=== PATIENT | female | born 1995 | race Caucasian/White ===

== ENCOUNTER 2023-10-23 12:53 | Emergency (ER) | payer OTHER, SELFPAY ==
[2023-10-23 12:57] VITALS: BP 124/89
--- NOTE | 2023-10-23 14:19 | ED.GENMED ---
History of Present Illness
General
Chief Complaint: Abnormal Lab Value
Time Seen by Provider: 10/23/23 13:15
History of Present Illness
History of Present Illness:
28-year-old female with history of anxiety presenting from correctional facility for abnormal vital signs and medical clearance. Patient notes that she violated parole, was taken into custody. When they were doing their intake, her oxygen was low
and her heart rate was high. She does note preceding this she was having a panic attack regarding the preceding events. She notes that she is presently feeling anxious. Denies any chest pain, difficulty breathing, abdominal pain. Denies any
fever or recent illness. She usually takes Klonopin for anxiety which she was not given today. Denies any weakness or lightheadedness or additional acute medical complaints
Past History
Past History
ED Past Medical History: Psychiatric (anxiety, depression, opiate abuse maintained on Suboxone, ADHD) and Other (IBS, rhabdomyolysis thought to be related to Zithromax.)
Social History
Tobacco: Smoker
Alcohol: Occasional
Drug: Marijuana and Narcotics
Personal: Single
Living: with family
Employment: Student
Family History
Family History: Other (Noncontributory)
Phy Exam
Physical Exam
Physical Exam:
General: Well-appearing, no clinical signs of dehydration, nontoxic and in no acute distress
HEENT: protecting airway
Neck: appears supple
CV: Normal heart rate, regular rhythm, no evidence of cyanosis
Resp: No accessory muscle use, no increased work of breathing, lungs clear to auscultation bilaterally
Abd: Soft and non-distended, no tenderness to palpation, normal bowel sounds
Extremities: No deformities, no swelling, no erythema, pulses and sensation intact
Neuro: alert, no focal neurologic deficit
: deferred
Rectal: deferred
Psych: Normal affect
Skin: Intact
Course
Orders/Labs/Results
Orders:
Orders
10/23/23 14:03
Clonazepam [Klonopin] 0.25 mg PO NOW STA
Vital Signs
Initial and Last Documented VS:
Initial Vital Signs
Temp Pulse Resp BP Pulse Ox
97.9 F 95 16 124/89 100
10/23/23 12:57 10/23/23 12:57 10/23/23 12:57 10/23/23 12:57 10/23/23 12:57
Last Documented Vital Signs
Temp Pulse Resp BP Pulse Ox
97.9 F 82 18 124/89 99
10/23/23 12:57 10/23/23 13:47 10/23/23 13:47 10/23/23 12:57 10/23/23 13:47
MDM/Problems Addressed
MDM/Problems Addressed:
28-year-old female with history of anxiety presenting to the emergency department for medical clearance from correctional facility with concern of preceding tachycardia and hypoxia. Vital signs on arrival however are normal.
On exam, patient is resting comfortably, no acute distress, no respiratory distress. Patient's oxygen level is normal. Lungs are clear to auscultation. No present concern for hypoxia. Additionally, heart rate is within normal limits, no present
tachycardia. For this reason no concern for PE or any active pathology. Patient notes that they took her vital signs after she had a panic attack, likely source of abnormal vital signs. Patient reports that she is feeling anxious. Will
administer her Klonopin. Otherwise do not feel that she requires any advanced workup. Feel stable for discharge, medically clear. Return precautions discussed and patient verbalized understanding
*Critical Care Note
Total Time (30-74mins, 75-104mins- exclusive of procedures): Not Applicable
ED Attending Note
-
Portions of this chart may have been created with voice recognition software.� Occasional wrong word or��sound alike� substitutions may have occurred due to the inherent limitations of voice recognition software.
Discharge Plan
Departure
Prescriptions:
No Action
ondansetron 4 mg tablet,disintegrating
4 mg PO Q8H PRN (Reason: nausea and vomiting) Qty: 10 0RF
Referrals:
[facility] [Family Provider] -
Interventions
Interventions:
*Risk Screen - Suicide Last Done: 10/23/23 13:50
*General Assessment Last Done: 10/23/23 13:50
*Neglect/Abuse Screening Last Done: 10/23/23 13:50
*ED COVID-19 Vaccine History Last Done: 10/23/23 13:50
Discharge Date and Time
Print Language: GREENLANDIC
[2023-10-23] MEDS: KLONOPIN 0.25 MG PO (14:48)
[2023-10-23 14:51] VITALS: BP 121/71
== END 2023-10-23 14:54 | disposition home or self-care (01) ==
LOC: EMR 12:53
PROVIDERS: EMERGENCY PHYSICIAN Student in an Organized Health Care Education/Training Program
DX: F41.8 Other specified anxiety disorders (principal); F90.9 Attention-deficit hyperactivity disorder, unspecified type; K58.9 Irritable bowel syndrome, unspecified; M62.82 Rhabdomyolysis; F17.200 Nicotine dependence, unspecified, uncomplicated
CPT/HCPCS: 99282

== ENCOUNTER 2023-10-30 14:32 | Emergency (ER) | payer OTHER, SELFPAY ==
[2023-10-30 14:38] VITALS: BP 103/66
--- NOTE | 2023-10-30 16:45 | ED.GENMED ---
History of Present Illness
General
Chief Complaint: Foreign Body Removal
Source: patient
Exam Limitations: none
Time Seen by Provider: 10/30/23 15:30
Nursing documentation reviewed up to this point in time: agreed with
History of Present Illness
History of Present Illness:
28 y/o F in custody [facility]
here with concerns for vaginal contraband which was already found and she is now here for a check
she consetns to vaginal and rectal exams and does not believe there are any additional bags of fentanyl in her body
she denies pain
she has had vaginal discharge, whitish, frothy and had BV 1 mo ago but then found out her partner was cheating on her so she is concerne dabout STI
she has no pelvic pain ,kfever chills, urinary symptoms
Past History
Past History
ED Past Medical History: Psychiatric (anxiety, depression, opiate abuse maintained on Suboxone, ADHD) and Other (IBS, rhabdomyolysis thought to be related to Zithromax.)
Social History
Tobacco: Smoker
Alcohol: Occasional
Drug: Marijuana and Narcotics
Personal: Single
Living: with family
Employment: Student
Family History
Family History: Other (Noncontributory)
Review of Systems
Review of Systems
Allergies reviewed?: Yes
All Other Systems: Not applicable
Phy Exam
Physical Exam
Physical Exam:
GENERAL: Alert , in no apparent distress
CARDIAC: Regular rate and rhythm .
LUNGS: Clear breath sounds bilaterally, no acute respiratory distress, no wheezes/rales/rhonchi
ABDOMEN: Soft, without focal tenderness, no r/g, no cvat, normal bowel sounds
: some vaginal discharge, thin, frothy
nothing found in vagina, no fb
nontender
no cervicitis
rectum: no fb
some stool
NEUROLOGICAL: Alert and oriented, no focal neuro deficits
SKIN: Warm and dry, skin intact.
PSYCH: Normal and appropriate interaction.
Course
Orders/Labs/Results
Orders:
Orders
10/30/23 14:52
CR Abdomen - 1 View Urgent
Comment:
Reason For Exam: contraband in vaginal vault
10/30/23 16:55
Trichomonas - Wet Prep Urgent
THADDEUS Source: Vagina
Specimen Description:
10/30/23 16:56
Chlamydia/GC by PCR Urgent
THADDEUS Source: Vagina
Specimen Description:
Source:: CERVIX
Vital Signs
Initial and Last Documented VS:
Initial Vital Signs
Temp Pulse Resp BP Pulse Ox
98.1 F 71 20 103/66 99
10/30/23 14:38 10/30/23 14:38 10/30/23 14:38 10/30/23 14:38 10/30/23 14:38
Last Documented Vital Signs
Temp Pulse Resp BP Pulse Ox
98.1 F 71 20 103/66 99
10/30/23 14:38 10/30/23 14:38 10/30/23 14:38 10/30/23 14:38 10/30/23 14:38
MDM/Problems Addressed
Differential Diagnosis Includes:
fb, vaginitis, sti
MDM/Problems Addressed:
28 y/o F incarcerated
had contraband in her vagina
is here for check
consents to rectum and vaginal exams
no fb found
xray indep reviewed, neg
she does have vaginitis, likely bv
will test for gc/ct trich and treat for bv
d/c to halfway
cleraed
*Critical Care Note
Total Time (30-74mins, 75-104mins- exclusive of procedures): Not Applicable
ED Attending Note
-
Portions of this chart may have been created with voice recognition software.� Occasional wrong word or��sound alike� substitutions may have occurred due to the inherent limitations of voice recognition software.
Discharge Plan
Departure
Patient Disposition: Home (Routine Discharge)
Date of Disposition: 10/30/23
Time of Disposition: 16:45
Patient with high blood pressure during this ER visit?: No
Condition: Fair
Covid-19: Not Applicable
Discharge Problem:
Bacterial vaginosis
Instructions: Bacterial Vaginosis ED
Prescriptions:
New
metronidazole 500 mg tablet
500 mg PO BID 7 Days Qty: 14 0RF
No Action
ondansetron 4 mg tablet,disintegrating
4 mg PO Q8H PRN (Reason: nausea and vomiting) Qty: 10 0RF
Referrals:
[facility] [Family Provider] -
Activity Restrictions/Additional Instructions:
YOU LIKELY HAVE BACTERIAL VAGINOSIS
YOU DID NOT HAVE ANY SIGN OF ANY CONTRABAND IN YOUR VAGINA OR YOUR RECTUM
YOUR XRAY DID NOT SHOW ANY FOREIGN BODIES AND YOU CONSENTED TO A RECTAL EXAM AND A PELVIC EXAM
WE ARE TREATING YOU FOR SUSPECTED BV WITH FLAGYL 500 MG TWIC EA DAY FOR 7 DAYS
IF YOU TEST POSITIVE FOR GONORRHEA OR CHLAMYDIA OR TRICHOMONAS, WE WILL CONTACT THE CORRECTIONAL FACILITY.
Interventions
Interventions:
*Risk Screen - Suicide Last Done: 10/30/23 14:38
*General Assessment Last Done: 10/30/23 14:38
*Neglect/Abuse Screening Last Done: 10/30/23 14:38
ED- Fall Risk Assessment Last Done: 10/30/23 14:43
Discharge Date and Time
Print Language: FRENCH
== END 2023-10-30 17:11 | disposition home or self-care (01) ==
LOC: EMR 14:32
PROVIDERS: EMERGENCY PHYSICIAN Emergency Medicine
DX: N76.0 Acute vaginitis (principal); B96.89 Other specified bacterial agents as the cause of diseases classified elsewhere; F41.9 Anxiety disorder, unspecified; F32.A Depression, unspecified; K58.9 Irritable bowel syndrome, unspecified; F90.9 Attention-deficit hyperactivity disorder, unspecified type; F11.11 Opioid abuse, in remission; F17.200 Nicotine dependence, unspecified, uncomplicated; Z88.1 Allergy status to other antibiotic agents; Z88.0 Allergy status to penicillin; Z88.8 Allergy status to other drugs, medicaments and biological substances
CPT/HCPCS: 99283; 74018; 87210; 87491; 87591

== ENCOUNTER 2024-11-12 05:06 | Emergency (ER) | payer OTHER, SELFPAY ==
[2024-11-12] VITALS (7 sets, daily range): BP systolic 92–102; BP diastolic 63–76; BMI 18.5
--- NOTE | 2024-11-12 05:33 | ED.GENMED ---
History of Present Illness
<Adam Sharpe MD - Last Filed: 11/12/24 05:49>
General
Chief Complaint: Change Level of Consciousness
Source: patient
Exam Limitations: none
Time Seen by Provider: 11/12/24 05:23
Nursing documentation reviewed up to this point in time: agreed with
History of Present Illness
History of Present Illness:
Patient presents to ED for evaluation after she was found to be unresponsive by bystanders, sitting on a bench. Per paramedics, police arrived at scene initially and recognized the patient, who has had previous similar episodes secondary to an
overdose. Patient was given 4 mg of Narcan intranasally by police with improvement. When paramedics arrived at the scene, patient was somnolent, but arousable to stimuli and able to verbalize. Upon arrival in ED, patient is easily arousable but
unable to provide any further information.
Past History
<Adam Sharpe MD - Last Filed: 11/12/24 05:49>
Past History
ED Past Medical History: Psychiatric (anxiety, depression, opiate abuse maintained on Suboxone, ADHD) and Other (IBS, rhabdomyolysis thought to be related to Zithromax.)
Social History
Tobacco: Smoker
Alcohol: Occasional
Drug: Marijuana and Narcotics
Personal: Single
Living: with family
Employment: Student
Family History
Family History: Other (Noncontributory)
Review of Systems
<Adam Sharpe MD - Last Filed: 11/12/24 05:49>
Review of Systems
Allergies reviewed?: Yes
Unable to obtain full review of systems at this time due to: due to acuity
All Other Systems: Not applicable
Phy Exam
<Adam Sharpe MD - Last Filed: 11/12/24 05:49>
Physical Exam
Physical Exam:
Physical Exam
General: mild distress, acutely ill. afebrile
Head: nc/at. pupils 3mm b/l and reactive
Neck: supple. no meningeal signs. normal posterior pharynx
Heart: s1/s2 regular rate and rhythm
Lungs: no acute respiratory distress. clear bilaterally
Abdomen: normal bowel sounds. not tender.
Neuro: somnolent but arousable to voice and physical stimuli. No focal neurological deficits
Skin: no rash
Extremities: no edema. no calf tenderness
Course
<Adam Sharpe MD - Last Filed: 11/12/24 05:49>
Orders/Labs/Results
Orders:
Orders
11/12/24 05:23
Alcohol Urgent
Basic Metabolic Panel Urgent
Complete Blood Count/With Diff Urgent
11/12/24 05:28
Drug Screen, Urine [Urine Drug Abuse Screen] Urgent
11/12/24 05:29
Electrocardiogram (*1) Urgent
Reason for Study: QTc Monitoring
EKG- Treatment ONCE
Abnormal Lab Results
11/12/24
05:23
Neutrophils % 40.2 L %
(42.2-75.2)
BUN 18 H mg/dl
(7-17)
Creatinine 0.5 L mg/dL
(0.6-1.0)
11/12/24 05:23
11/12/24 05:23
Vital Signs
Initial and Last Documented VS:
Initial Vital Signs
Pulse Resp
81 21
11/12/24 05:10 11/12/24 05:10
Last Documented Vital Signs
Temp Pulse Resp BP Pulse Ox
97.6 F 74 18 96/63 98
11/12/24 05:13 11/12/24 08:30 11/12/24 08:30 11/12/24 08:01 11/12/24 08:30
<Evangelista Howard DO - Last Filed: 11/12/24 10:57>
Orders/Labs/Results
Orders:
Orders
11/12/24 05:23
Alcohol Urgent
Basic Metabolic Panel Urgent
Complete Blood Count/With Diff Urgent
11/12/24 05:28
Drug Screen, Urine [Urine Drug Abuse Screen] Urgent
11/12/24 05:29
Electrocardiogram (*1) Urgent
Reason for Study: QTc Monitoring
EKG- Treatment ONCE
Abnormal Lab Results
11/12/24
05:23
Neutrophils % 40.2 L %
(42.2-75.2)
BUN 18 H mg/dl
(7-17)
Creatinine 0.5 L mg/dL
(0.6-1.0)
11/12/24 05:23
11/12/24 05:23
Vital Signs
Initial and Last Documented VS:
Initial Vital Signs
Pulse Resp
81 21
11/12/24 05:10 11/12/24 05:10
Last Documented Vital Signs
Temp Pulse Resp BP Pulse Ox
97.6 F 74 18 96/63 98
11/12/24 05:13 11/12/24 08:30 11/12/24 08:30 11/12/24 08:01 11/12/24 08:30
<Adam Sharpe MD - Last Filed: 11/12/24 05:49>
*Pulse Oximetry
SaO2: 100
Oxygen Mode of Delivery: Room air
*EKG
Interpreted by ED Provider?: Yes
EKG Intrepretation Date: 11/12/24
Heart Rate: 69
Rate: normal
Rhythm: sinus
[place]: normal axis
Interval: normal interval
<Evangelista Howard DO - Last Filed: 11/12/24 10:57>
*Pulse Oximetry
Patient hypoxic: no
*Critical Care Note
Total Time (30-74mins, 75-104mins- exclusive of procedures): Not Applicable
<Evangelista Howard DO - Last Filed: 11/12/24 10:57>
Update Note
Update Note:
10:55 AM care of patient was transitioned earlier pending reevaluation. There was concern for drug and alcohol intoxication. Patient apparently got better with Narcan. On multiple reassessments, patient sleeping comfortably. Eventually, patient
woke up and is awake and alert and ambulating. She cannot recall the events that led her here but states she feels safe at home. Patient declined any drug or alcohol counseling. Patient did not want to wait for discharge paperwork but did receive
a verbal discharge information. We discussed likely drug overdose. She denies suicide attempt or purposeful self-harm. Patient understands strict return precautions
ED Attending Note
<Adam Sharpe MD - Last Filed: 11/12/24 05:49>
-
Portions of this chart may have been created with voice recognition software.� Occasional wrong word or��sound alike� substitutions may have occurred due to the inherent limitations of voice recognition software.
Discharge Plan
Departure
Patient Disposition: Home (Routine Discharge)
Date of Disposition: 11/12/24
Time of Disposition: 10:57
Patient with high blood pressure during this ER visit?: No
Discharge Problem:
Unresponsive episode
Prescriptions:
No Action
ondansetron 4 mg tablet,disintegrating
4 mg PO Q8H PRN (Reason: nausea and vomiting) Qty: 10 0RF
metronidazole 500 mg tablet
500 mg PO BID 7 Days Qty: 14 0RF
Referrals:
UNKNOWN - PT DOES,NOT KNOW [Family Provider]
Interventions
Interventions:
*Risk Screen - Suicide Last Done: 11/12/24 05:13
*General Assessment Last Done: 11/12/24 05:13
*Neglect/Abuse Screening Last Done: 11/12/24 05:13
*ED- Fall Risk Assessment Last Done: 11/12/24 05:13
*ED COVID-19 Vaccine History Last Done: 11/12/24 05:13
ED- Cardiac Assessment Last Done: 11/12/24 05:31
ED- Neurological Assessment Last Done: 11/12/24 05:31
ED-Psychological Assessment Last Done: 11/12/24 05:31
ED- Pulmonary Assessment Last Done: 11/12/24 05:31
Discharge Date and Time
Print Language: SOUTH SUDAN[place]
--- NOTE | 2024-11-12 05:33 | EDRN ---
Patient was found on a bench in [place] unresponsive by someone walking in town. Patient found by EMS with snoring respirations. Patient was given intranasal Narcan. Patient lethargic on arrival. Arouses to touch and sound. Patient stated 'I
think meth' when asked she was using. Per police they found 2 syringes in her possession. 1 was full and 1 was empty. Police also found 'fruit salad' of pills in her possession.
[2024-11-12 05:37] LABS: Hematocrit 39.0 % (37.0-47.0); Hemoglobin 13.9 g/dL (12.0-16.0); Mean Corp Hgb Conc. 35.6 g/dL (33.0-37.0); Mean Corpuscular Volume 82.1 fL (81.0-99.0); Nucleated Red Blood Cells % 0.4 %; Platelet Count 249 10^3/uL (130-400); Red Cell Dist. Width 12.6 % (11.5-14.5)
[2024-11-12 06:07] LABS: Blood Urea Nitrogen 18 mg/dl (7-17); Calcium 9.0 mg/dl (8.4-10.2); Carbon Dioxide 23 mmol/L (22-30); Chloride 107 mmol/L (98-107); Estimated Creatinine Clearance 106 ml/min; Glucose 83 mg/dl (70-99); Sodium 140 mmol/L (135-145); eGFR > 60.00
== END 2024-11-12 11:09 | disposition home or self-care (01) ==
LOC: EMR 05:06
PROVIDERS: EMERGENCY PHYSICIAN Emergency Medicine
DX: R40.4 Transient alteration of awareness (principal); F17.200 Nicotine dependence, unspecified, uncomplicated
CPT/HCPCS: 99284; 80048; 82077; 85025; 93005

== ENCOUNTER 2025-01-04 22:09 | Emergency (ER) | payer OTHER, SELFPAY ==
[2025-01-04 22:11] VITALS: BP 111/76
[2025-01-04 22:41] LABS: Hematocrit 37.5 % (37.0-47.0); Hemoglobin 13.7 g/dL (12.0-16.0); Mean Corp Hgb Conc. 36.5 g/dL (33.0-37.0); Mean Corpuscular Volume 77.6 fL (81.0-99.0); Nucleated Red Blood Cells % 0 %; Platelet Count 295 10^3/uL (130-400); Red Cell Dist. Width 12.5 % (11.5-14.5)
[2025-01-04 22:53] LABS: HCG, Serum Qualitative Screen Negative
[2025-01-04 22:54] LABS: ALT (SGPT) 28 U/L (0-35); AST (SGOT) 26 U/L (14-36); Albumin 4.5 g/dl (3.5-5.0); Alkaline Phosphatase 106 U/L (38-126); Blood Urea Nitrogen 11 mg/dl (7-17); Calcium 9.7 mg/dl (8.4-10.2); Carbon Dioxide 21 mmol/L (22-30); Chloride 101 mmol/L (98-107); Glucose 138 mg/dl (70-99); Potassium 4.1 mmol/L (3.5-5.1); Sodium 134 mmol/L (135-145); Total Protein 8.1 g/dl (6.3-8.2); eGFR > 60.00
--- NOTE | 2025-01-04 23:23 | ED.GENMED ---
History of Present Illness
General
Chief Complaint: Flank Pain
Source: patient and family
Exam Limitations: none
Time Seen by Provider: 01/04/25 23:07
Nursing documentation reviewed up to this point in time: agreed with
History of Present Illness
History of Present Illness:
Note:
CHIEF COMPLAINT(S)
Severe lower back pain exacerbated by coughing, with associated symptoms of nausea, near-syncope, and pain radiating to the anterior abdomen.
HISTORY OF PRESENT ILLNESS
The patient is a 29-year-old female who reports experiencing moderate lower back pain following lifting a heavy box. This pain has been intermittent, and though it was manageable, she reported a progression to severe intensity. About a week and a
half ago, the patient developed a respiratory illness characterized by a congestive cough, which aggravated the back pain. During a recent appointment, the patient reached a pain level so intense that she nearly fainted, felt nauseous, and
experienced a degree of delirium. The pain now radiates to her anterior abdomen, with accompanying numbness. The patient denies fever but reports significant coughing producing mucus. Her consultation at urgent care resulted in a diagnosis of an
acute respiratory condition, though there were misunderstandings regarding x-ray requests. No imaging has currently been performed.
PAST MEDICAL AND SURGICAL HISTORY
The patient has a history of requesting physical therapy exercises for back pain, following the initial lifting incident.
ALLERGIES
The patient reports an allergy to erythromycin, which causes a significant rash.
MEDICATIONS
Currently, she takes immediate and extended-release medications, as well as ibuprofen. She had taken ibuprofen approximately three hours prior to the visit for pain management.
PHYSICAL EXAM
General: Alert, no acute distress.
Skin: Warm, dry.
Head: Normocephalic, atraumatic.
Neck: Supple, trachea midline.
Eye, Ears, Nose, Mouth, and Throat: Oral mucosa moist.
Cardiovascular: Normal peripheral perfusion, No edema.
Respiratory: Respirations are non-labored.
Gastrointestinal: Abdomen nondistended, tenderness noted on palpation of the right side.
Back: Examination reveals discomfort with movement.
Musculoskeletal: Normal range of motion, normal strength, but reported pain exacerbated by movement.
Neurological: Alert and oriented to person, place, time, and situation. No focal neurological deficits observed.
Psychiatric: Cooperative, appropriate mood & affect.
PROBLEM LIST
Acute problems: Severe lower back pain, respiratory illness, nausea, near-syncope.
PLAN
1. Administer Ketorolac (Toradol) for pain management to evaluate the patients response to non-narcotic pain relief.
2. Request a urine sample to check for hematuria or signs of infection.
3. Order a chest X-ray to evaluate respiratory symptoms.
4. Order a CT scan to assess for renal involvement, such as kidney stones or infection.
DIFFERENTIAL DIAGNOSIS
The Differential Diagnosis includes, in no particular order and is not limited to:
1. Musculoskeletal strain from lifting
2. Acute bronchitis
3. Renal colic or nephrolithiasis
4. Kidney infection (pyelonephritis)
5. Viral upper respiratory infection
6. Gastrointestinal issue, possibly related to musculoskeletal strain
7. Thoracic muscle strain from coughing
8. Intercostal neuralgia related to respiratory illness
9. Costochondritis
10. Urinary tract infection
CT abdomen pelvis shows right sided pneumonia constipation, chest x-ray also shows right lower lobe pneumonia. No signs of kidney stone or bowel obstruction.
Differential diagnosis UTI, kidney stone, pneumothorax.
Patient improved after Toradol. She will continue her doxycycline, and add cefpodoxime for right lower lobe pneumonia patient stable for discharge.
Past History
Past History
ED Past Medical History: Psychiatric (anxiety, depression, opiate abuse maintained on Suboxone, ADHD) and Other (IBS, rhabdomyolysis thought to be related to Zithromax.)
Social History
Tobacco: Smoker
Alcohol: Occasional
Drug: Marijuana and Narcotics
Personal: Single
Living: with family
Employment: Student
Family History
Family History: Other (Noncontributory)
Phy Exam
Physical Exam
Physical Exam:
.
Course
Orders/Labs/Results
Orders:
Orders
01/04/25 22:18
Test Result ONCE
01/04/25 22:30
Complete Blood Count/With Diff Urgent
Comprehensive Metabolic Panel Urgent
HCG, Serum Qualitative Screen Urgent
01/04/25 23:22
CT Abd/pel Without Iv Or Oral Urgent
Comment:
Reason For Exam: right flank pain
IV Insert/Care/Rem.- Treatment PRN
Ketorolac [Toradol] 15 mg IV NOW STA
CR Chest - 2 Views Urgent
Comment:
Reason For Exam: cough, flank pain
01/04/25 23:31
Urinalysis Reflex To Culture Urgent
Date Specimen was Collected: 01/04/25
Time Specimen was Collected: 22:17
Urine Microscopic Reflex Cult Urgent
Urine Culture Urgent
THADDEUS Source: U
Specimen Description:
Date Specimen was Collected: 01/04/25
Time Specimen was Collected: 22:17
Abnormal Lab Results
01/04/25 01/04/25
22:30 23:31
WBC 12.5 H 10^3/uL
(4.8-10.8)
MCV 77.6 L fL
(81.0-99.0)
Abs Immat Gran (auto) 0.1 H 10^3/uL
(0-0.05)
Absolute Neuts (auto) 9.0 H 10^3/uL
(1.4-6.5)
Absolute Monos (auto) 0.9 H 10^3/uL
(0.1-0.6)
Lymphocytes % 19.0 L %
(20.5-51.1)
Sodium 134 L mmol/L
(135-145)
Carbon Dioxide 21 L mmol/L
(22-30)
Creatinine 0.5 L mg/dL
(0.6-1.0)
Glucose 138 H mg/dl
(70-99)
Urine Bacteria (Reflex) Many A
(Negative)
Urine Albumin (Reflex) 1+ A
(Neg - Trace)
01/04/25 22:30
01/04/25 22:30
Vital Signs
Initial and Last Documented VS:
Initial Vital Signs
Temp Pulse Resp BP Pulse Ox
98.3 F 117 18 111/76 99
01/04/25 22:11 01/04/25 22:11 01/04/25 22:11 01/04/25 22:11 01/04/25 22:11
Last Documented Vital Signs
Temp Pulse Resp BP Pulse Ox
98.3 F 100 16 103/76 100
01/04/25 22:11 01/05/25 01:10 01/05/25 01:10 01/05/25 01:10 01/05/25 01:10
*Pulse Oximetry
SaO2: 99
Oxygen Mode of Delivery: Room air
Patient hypoxic: no
*Critical Care Note
Total Time (30-74mins, 75-104mins- exclusive of procedures): Not Applicable
ED Attending Note
-
Portions of this chart may have been created with voice recognition software.� Occasional wrong word or��sound alike� substitutions may have occurred due to the inherent limitations of voice recognition software.
Discharge Plan
Departure
Patient Disposition: Home (Routine Discharge)
Date of Disposition: 01/05/25
Time of Disposition: 00:52
Patient with high blood pressure during this ER visit?: No
Condition: Good
Discharge Problem:
Pneumonia, Acute right flank pain
Instructions: Pneumonia in adults, Flank Pain (DC)
Prescriptions:
New
cefpodoxime 200 mg tablet
200 mg PO BID Qty: 10 0RF
No Action
ondansetron 4 mg tablet,disintegrating
4 mg PO Q8H PRN (Reason: nausea and vomiting) Qty: 10 0RF
metronidazole 500 mg tablet
500 mg PO BID 7 Days Qty: 14 0RF
Referrals:
UNKNOWN - PT DOES,NOT KNOW [Family Provider]
Interventions
Interventions:
*Risk Screen - Suicide Last Done: 01/04/25 22:15
*General Assessment Last Done: 01/04/25 22:15
*Neglect/Abuse Screening Last Done: 01/04/25 22:15
*ED COVID-19 Vaccine History Last Done: 01/04/25 22:15
*Nursing Disposition Last Done: 01/05/25 01:10
TC-Rlispk-Aedwkysacu Assessment Last Done: 01/04/25 23:15
ED-Female Genitourinary Assessment Last Done: 01/04/25 23:15
Discharge Date and Time
Discharge Date/Time: 01/05/25 01:11
Print Language: MONEGASQUE
[2025-01-04 23:36] LABS: Urine Character Clear (Clear)
[2025-01-04 23:50] LABS: Urine Red Blood Cell None Seen /HPF (0-2); Urine White Cell 0-2 /HPF (0-5)
[2025-01-04] MEDS: TORADOL 15 MG IV (23:54)
[2025-01-05 01:10] VITALS: BP 103/76
== END 2025-01-05 01:11 | disposition home or self-care (01) ==
LOC: EMR 22:09
PROVIDERS: Emergency Medicine; EMERGENCY PHYSICIAN Emergency Medicine
DX: J18.9 Pneumonia, unspecified organism (principal); R10.9 Unspecified abdominal pain; F17.200 Nicotine dependence, unspecified, uncomplicated; M54.50 Low back pain, unspecified; Z88.1 Allergy status to other antibiotic agents
CPT/HCPCS: 99284; 96374; 71046; 74176; 80053; 81003; 81015; 84703; 85025; 87086

== ENCOUNTER 2025-01-07 17:45 | Emergency (ER) | payer OTHER, SELFPAY ==
[2025-01-07 17:47] VITALS: BP 112/77
[2025-01-07 18:36] VITALS: BMI 18.3
[2025-01-07 18:38] VITALS: BP 96/46
--- NOTE | 2025-01-07 19:10 | ED.GENMED ---
History of Present Illness
General
Chief Complaint: Back Pain
Source: patient
Exam Limitations: none
Time Seen by Provider: 01/07/25 18:48
Nursing documentation reviewed up to this point in time: agreed with
History of Present Illness
History of Present Illness:
Patient presents to ED secondary to continual right lower back pain, which started approximate 2 months ago. Patient was evaluated in ED 2 days ago for similar complaint. CT scanning at that time revealed pneumonia, as she also has had upper
respiratory symptoms for the past 2 weeks, which has worsened her lower back pain, especially during coughing spells. Denies fever or chills. Denies new trauma. Denies loss of sensation or weakness. Denies any urinary or bowel incontinence.
Denies difficulty with ambulation. Patient has been taking Tylenol and Motrin with minimal relief in symptoms.
Past History
Past History
ED Past Medical History: Psychiatric (anxiety, depression, opiate abuse maintained on Suboxone, ADHD) and Other (IBS, rhabdomyolysis thought to be related to Zithromax.)
Social History
Tobacco: Smoker
Alcohol: Occasional
Drug: Marijuana and Narcotics
Personal: Single
Living: with family
Employment: Student
Family History
Family History: Other (Noncontributory)
Review of Systems
Review of Systems
Allergies reviewed?: Yes
All Other Systems: ROS reviewed and negative except as documented in HPI and ROS
Constitutional: Reports no symptoms; Denies fever
Respiratory: Reports cough
Cardiac: Reports no symptoms
ABD/GI: Reports no symptoms; Denies nausea or vomiting
: Reports no symptoms; Denies incontinence
Musculoskeletal: Reports back pain
Skin: Reports no symptoms
Neurological: Reports no symptoms; Denies weakness or numbness
Phy Exam
Physical Exam
Physical Exam:
Physical Exam
General: no apparent distress, not acutely ill. afebrile
Head: nc/at. eomi
Neck: supple. no meningeal signs.
Abdomen: normal bowel sounds. not tender.
Back: no midline tenderness. mild right lower back tenderness to palpation at level of L2-3, without ecchymosis/erythema/swelling. negative straight raise leg test
Neuro: alert and oriented x 3. no focal neurological deficits. normal gait
Skin: no rash
Psychiatric: well kept. interactive and cooperative
Extremities: no edema.
Course
Orders/Labs/Results
Orders:
Orders
01/07/25 19:09
Dexamethasone Pf [Decadron] 10 mg PO NOW STA
01/07/25 19:17
Ketorolac [Toradol] 10 mg PO NOW STA
Vital Signs
Initial and Last Documented VS:
Initial Vital Signs
Temp Pulse Resp BP Pulse Ox
98.3 F 106 16 112/77 96
01/07/25 17:47 01/07/25 17:47 01/07/25 17:47 01/07/25 17:47 01/07/25 17:47
Last Documented Vital Signs
Temp Pulse Resp BP Pulse Ox
98.3 F 94 16 96/46 100
01/07/25 17:47 01/07/25 18:38 01/07/25 18:38 01/07/25 18:38 01/07/25 19:14
MDM/Problems Addressed
MDM/Problems Addressed:
Patient previous ED visits reviewed, including lumbar x-ray as well as CT abdomen pelvis recently. As there has been no significant clinical changes, without any new events, no indication for any further imaging studies at this time. Patient
otherwise is afebrile, hemodynamically stable, and neurologically intact, without any exam findings concerning for cauda equina syndrome. Return precautions provided to patient, i.e. fever/worsening pain/incontinence/weakness. Otherwise, strongly
recommended that patient follow-up with PCP for reevaluation, including MRI lumbar spine as an outpatient. Patient expressed understanding at time of discharge.
*Pulse Oximetry
SaO2: 100
Oxygen Mode of Delivery: Room air
Patient hypoxic: no
*Critical Care Note
Total Time (30-74mins, 75-104mins- exclusive of procedures): Not Applicable
ED Attending Note
-
Portions of this chart may have been created with voice recognition software.� Occasional wrong word or��sound alike� substitutions may have occurred due to the inherent limitations of voice recognition software.
Discharge Plan
Departure
Patient Disposition: Home (Routine Discharge)
Date of Disposition: 01/07/25
Time of Disposition: 19:14
Patient with high blood pressure during this ER visit?: No
Condition: Good
Discharge Problem:
Back pain
Instructions: Low Back Pain (DC)
Prescriptions:
New
ketorolac 10 mg tablet
10 mg PO Q8H PRN (Reason: Pain) Qty: 14 0RF
Rx Instructions:
maximum total duration of 5 days from all oral, intranasal, or parenteral formulations
oxycodone 5 mg tablet
5 mg PO Q8H PRN (Reason: Pain) Qty: 5 0RF
No Action
ondansetron 4 mg tablet,disintegrating
4 mg PO Q8H PRN (Reason: nausea and vomiting) Qty: 10 0RF
metronidazole 500 mg tablet
500 mg PO BID 7 Days Qty: 14 0RF
cefpodoxime 200 mg tablet
200 mg PO BID Qty: 10 0RF
Activity Restrictions/Additional Instructions:
As discussed, please follow-up with your primary care physician for reevaluation, including potentially obtaining MRI lumbar spine as an outpatient. Please consider return to ED with worsening symptoms, i.e. fever/urinary or bowel incontinence/leg
weakness. Your prescriptions have been sent electronically to [facility] pharmacy in [place].
Interventions
Interventions:
*Risk Screen - Suicide Last Done: 01/07/25 18:38
*General Assessment Last Done: 01/07/25 18:37
*Neglect/Abuse Screening Last Done: 01/07/25 18:38
*ED- Fall Risk Assessment Last Done: 01/07/25 18:37
*ED COVID-19 Vaccine History Last Done: 01/07/25 18:37
*Nursing Disposition Last Done: 01/07/25 19:29
ED-Musculoskeletal Assessment Last Done: 01/07/25 18:38
Discharge Date and Time
Discharge Date/Time: 01/07/25 20:12
Print Language: ITALIAN
[2025-01-07] MEDS: TORADOL 10 MG PO (19:27)
[2025-01-07] MEDS: DECADRON 10 MG PO (19:27)
== END 2025-01-07 20:12 | disposition home or self-care (01) ==
LOC: EMR 17:45
PROVIDERS: EMERGENCY PHYSICIAN Emergency Medicine; FAMILY PHYSICIAN Family Medicine
DX: M54.50 Low back pain, unspecified (principal); F41.8 Other specified anxiety disorders; K58.9 Irritable bowel syndrome, unspecified; F17.200 Nicotine dependence, unspecified, uncomplicated
CPT/HCPCS: 99282